=== PATIENT | male | born 1980 | race Caucasian/White ===

== ENCOUNTER 2020-11-26 16:28 | Emergency (ER) | payer SELFPAY ==
[~2020-11-26 16:28] MED LIST: NORFLEX 100 MG100 MG PO; PREDNISONE 50 M50 MG PO; Voltaren Gel 1 % TOP; ZOFRAN4 MG PO
[2020-11-26 20:03] LABS: RED BLOOD COUNT 4.76 M/UL (4.20-5.50); WHITE BLOOD COUNT 10.9 K/UL (4.5-11.0)
[2020-11-26 20:25] LABS: BUN/CREATININE RATIO 18 (0-10)
== END 2020-11-26 23:35 | disposition home or self-care (01) ==
LOC: ER1 16:28
PROVIDERS: Physician Assistant
DX: K80.20 Calculus of gallbladder without cholecystitis without obstruction (principal); E78.5 Hyperlipidemia, unspecified; M10.9 Gout, unspecified; F17.210 Nicotine dependence, cigarettes, uncomplicated
CPT/HCPCS: 36415; 80053; 82150; 83690; 85025; 96374; 96375; 99284; J2270; J2405; Q9967

== ENCOUNTER 2021-01-21 19:20 | Emergency (ER) | payer OTHER ==
[2021-01-21 19:49] LABS: RED BLOOD COUNT 4.78 M/UL (4.20-5.50); WHITE BLOOD COUNT 11.5 K/UL (4.5-11.0)
[2021-01-21 20:08] LABS: BUN/CREATININE RATIO 13 (0-10)
== END 2021-01-21 21:53 | disposition home or self-care (01) ==
LOC: ER1 19:20
PROVIDERS: Family Medicine
DX: M54.5 Low back pain (principal); F17.210 Nicotine dependence, cigarettes, uncomplicated
CPT/HCPCS: 72100; 80053; 81001; 83690; 85025; 99283

== ENCOUNTER 2021-06-23 16:22 | Emergency (ER) | payer SELFPAY ==
[2021-06-23 17:18] LABS: HEMOGLOBIN 15.3 gm/dl (14.0-17.5); RED BLOOD COUNT 4.84 M/UL (4.20-5.50); WHITE BLOOD COUNT 10.5 K/UL (4.5-11.0)
[2021-06-23 17:38] LABS: BUN/CREATININE RATIO 21 (0-10)
[2021-06-23] MEDS ORDERED: NORFLEX 100 MG100 MG PO (20:47)
[2021-06-23] MEDS ORDERED: ALLOPURINOL300 MG PO (20:47)
[2021-06-23] MEDS ORDERED: MEDROL DOSEPAK 24 MG PO (20:47)
[2021-06-23] MEDS ORDERED: CATAPRES 0.1MG0.1 MG PO (20:47)
== END 2021-06-23 20:55 | disposition home or self-care (01) ==
LOC: ER1 16:22
PROVIDERS: Physician Assistant Medical
DX: R52 Pain, unspecified (principal); Z76.0 Encounter for issue of repeat prescription; F17.210 Nicotine dependence, cigarettes, uncomplicated
CPT/HCPCS: 80053; 84550; 85025; 99284; U0002

== ENCOUNTER 2021-09-07 13:37 | Emergency (ER) | payer SELFPAY ==
[~2021-09-07 13:37] MED LIST changes: +ALLOPURINOL300 MG PO; +CATAPRES 0.1MG0.1 MG PO; +MEDROL DOSEPAK 24 MG PO
[2021-09-07 15:13] LABS: HEMOGLOBIN 16.5 gm/dl (14.0-17.5); RED BLOOD COUNT 4.85 M/UL (4.20-5.50); WHITE BLOOD COUNT 10.6 K/UL (4.5-11.0)
[2021-09-07 15:26] LABS: BUN/CREATININE RATIO 16 (0-10)
[2021-09-07] MEDS ORDERED: ZOFRAN ODT 4 MG4 MG SL (17:42)
== END 2021-09-07 17:46 | disposition home or self-care (01) ==
LOC: ER1 13:37
PROVIDERS: Nurse Practitioner
DX: G43.909 Migraine, unspecified, not intractable, without status migrainosus (principal); I10 Essential (primary) hypertension; F17.210 Nicotine dependence, cigarettes, uncomplicated; Z20.822 Contact with and (suspected) exposure to COVID-19
CPT/HCPCS: 80053; 81001; 85025; 96374; 96375; 99284; J0780; J1100; J1200; J1885; J2765; U0003